=== PATIENT | female | born 1990 | race Caucasian/White ===

== ENCOUNTER 2022-03-29 22:56 | Inpatient (IN) ==
[2022-03-29] MEDS ORDERED: Metoclopramide 10 MG/2 ML VIAL IVP PRN (23:14)
[2022-03-29] MEDS ORDERED: Naloxone 0.4 MG/ML INJ IVP PRN (23:14)
[2022-03-29] MEDS ORDERED: Azithromycin 500 MG in 0.9 % Sodium Chloride 250 ML IVPB PRN (23:14)
[2022-03-29] MEDS ORDERED: Ondansetron 4 MG/2 ML VIAL IVP PRN (23:14)
[2022-03-29] MEDS ORDERED: Famotidine 20 MG/2 ML VIAL IVP PRN (23:14)
[2022-03-29] MEDS ORDERED: *HR* Nalbuphine 10 MG/ML AMPUL IV PRN (23:14)
[2022-03-29 23:39] LABS: Basophils % 0.1 %; Eosinophils # 0.1 K/mcL (0.0-0.6); Eosinophils % 1.2 %; Hematocrit 38.1 % (35.3-44.9); Hemoglobin 12.4 g/dL (11.5-15.4); Immature Granulocytes % 0.6 % (0-4); Lymphocytes # 1.4 K/mcL (0.6-4.6); Lymphocytes % 16.5 %; Mean Corpuscular HGB Conc 32.5 g/dL (31.6-35.5); Mean Corpuscular Hemoglobin 27.3 pg (28.0-33.3); Mean Corpuscular Volume 83.9 fL (83.0-100.0); Mean Platelet Volume 11.7 fL (9.4-12.4); Monocytes # 0.7 K/mcL (0.0-1.3); Monocytes % 7.9 %; Neutrophils # 6.3 K/mcL (1.6-8.9); Platelet Count 195 K/mcL (140-400); Red Blood Count 4.54 M/mcL (3.82-4.97); Red Cell Distribution Width 14.6 % (11.5-14.5); Segmented Neutrophils % 73.7 %; White Blood Count 8.5 K/mcL (4.3-11.1)
[2022-03-29 23:51] LABS: Amphetamine Screen,Urine Negative ng/mL (Cutoff=1000); Barbiturate Screen,Urine Negative ng/mL (Cutoff=200); Benzodiazepines Screen,Urine Negative ng/mL (Cutoff=200); Cannabinoid Screen,Urine Negative ng/mL (Cutoff = 50); Cocaine Screen,Urine Negative ng/mL (Cutoff= 300); Creatinine,Urine 21 mg/dL; Opiate Screen,Urine Negative ng/mL (Cutoff=300); Phencyclidine Screen,Urine Negative ng/mL (Cutoff=25); Protein/Creatinine Ratio,Urine 0.52 mg/mg (0.00-0.20)
[2022-03-30 00:03] LABS: Alanine Aminotransferase 12 Units/L (7-52); Aspartate Amino Transferase 14 Units/L (13-39); BUN/Creatinine Ratio 10 (6-26); Blood Urea Nitrogen 6 mg/dL (6-20); Lactate Dehydrogenase 124 Units/L (140-271); Uric Acid 4.5 mg/dL (2.3-7.6); eGFR For African Americans > 60 (> 60); eGFR For Non-African Americans > 60 (> 60)
[2022-03-30] MEDS: Ringers Solution, Lactated 1,000 ML IVC SCH ×3 (00:24→11:26)
[2022-03-30] MEDS: miSOPROStoL 25 MCG TABLET PO PRN ×2 (00:31→04:42)
[2022-03-30] MEDS ORDERED: *HR* FentaNYL (PF) 100 MCG/2 ML VIAL ONE (09:10)
[2022-03-30] MEDS ORDERED: Ropivacaine/PF 0.2% 20 ML VIAL ONE (09:10)
[2022-03-30] MEDS ORDERED: Epidural Premix (fent/bupiv) 110 ML EP ONE (09:57)
[2022-03-30] MEDS ORDERED: EPHEDrine 50 MG/ML VIAL IVP PRN (10:07)
[2022-03-30] MEDS ORDERED: Epidural Premix (fent/bupiv) 110 ML EP SCH (10:15)
[2022-03-30] MEDS ORDERED: Oxytocin 30 UNIT/503 ML BAG IVC SCH ×2 (11:15→14:44)
[2022-03-30] MEDS ORDERED: Lanolin 7 G OINT...G. TP PRN (14:44)
[2022-03-30] MEDS ORDERED: OXYTOCIN/RINGERS LACTATE 10 UNIT/166.6 ML BAG IVC ONE (14:44)
[2022-03-30] MEDS ORDERED: Benzocaine/Menthol 56 GM AEROSOL SPRAY TP PRN (14:44)
[2022-03-30] MEDS ORDERED: Ondansetron ODT 4 MG TAB.RAPDIS SL PRN (14:44)
[2022-03-30] MEDS ORDERED: Ipratropium 1 PUFF INHALER IH SCH (16:00)
[2022-03-30] MEDS ORDERED: NON-FORMULARY MEDICATION 1 EACH EACH (Ipratropium/Albuterol Sulfate 120 PUFF Inhaler) IH SCH (17:00)
[2022-03-30] MEDS: Acetaminophen 325 MG TABLET PO SCH (20:11)
[2022-03-30] MEDS: Ibuprofen 600 MG TABLET PO SCH (20:11)
[2022-03-30] MEDS: Clobetasol Propionate 0.05% 15 GM Cream Tube TP SCH (20:13)
[2022-03-31 02:48] VITALS: O2SAT 96
[2022-03-31] MEDS: Ibuprofen 600 MG TABLET PO SCH (03:08)
[2022-03-31] MEDS: Acetaminophen 325 MG TABLET PO SCH ×2 (03:09→12:59)
[2022-03-31 07:15] VITALS: BP 135/90; PULSE 100; TEMP 97.7
[2022-03-31] MEDS ORDERED: Prenatal Vit/FA 1 EACH TABLET PO SCH (09:00)
[2022-03-31] MEDS: Clobetasol Propionate 0.05% 15 GM Cream Tube TP SCH (13:04)
== END 2022-03-31 15:00 | disposition home or self-care (01) | DRG 560 ==
LOC: 1NENULAB 22:56 → 1NENUOBS 03-30 15:36
PROVIDERS: ADMIT Obstetrics & Gynecology; ATTEND Obstetrics & Gynecology